=== PATIENT | male | born 1975 | race American Indian/Alaskan Native ===

== ENCOUNTER 2017-07-04 05:25 | Emergency (ER) | payer SELFPAY ==
[2017-07-04 05:26] VITALS: BMI 24.4
[2017-07-04 05:51] VITALS: RESP 18; TEMP 97.3
--- NOTE | 2017-07-04 05:58 | ED PDOC ---
Arrival/HPI - General Chief Complaint: Medical Clearance Time Seen by Provider: 07/04/17 05:47 Historian: Patient - History of Present Illness Narrative History of Present Illness (Text): 07/04/17 05:54 41 year old male, with no significant past medical history, presents to the Emergency department for a place to stay for tonight. Patient states he is homeless and was walking around with no place to stay and requesting to rest for a while. Upon questioning about medical complaints, patient states "I guess I have to go back to the jail". Patient denies any fever, chills, nausea, vomiting, diarrhea, chest pain, shortness of breath or any other somatic complaints. Patient admits to smoking everyday. Time/Duration: Prior to Arrival Activities at Onset: Light Context: Street Past Medical History - Provider Review Nursing Documentation Reviewed: Yes - Cardiac Hx Cardiac Disorders: Yes Hx Hypertension: Yes - Pulmonary Hx Respiratory Disorders: No - Neurological Hx Neurological Disorder: No - HEENT Hx HEENT Disorder: No - Renal Hx Renal Disorder: No - Endocrine/Metabolic Hx Endocrine Disorders: No - Hematological/Oncological Hx Blood Disorders: No - Integumentary Hx Dermatological Disorder: No - Musculoskeletal/Rheumatological Hx Musculoskeletal Disorders: No - Gastrointestinal Hx Gastrointestinal Disorders: No - Genitourinary/Gynecological Hx Genitourinary Disorders: No - Psychiatric Hx Psychophysiologic Disorder: No Hx Substance Use: No - Surgical History Hx Appendectomy: Yes - Anesthesia Hx Anesthesia: No Family/Social History - Physician Review Nursing Documentation Reviewed: Yes Family/Social History: No Known Family HX Smoking Status: Current Some Days Smoker Hx Alcohol Use: Yes Frequency of alcohol use: Daily Hx Substance Use: No Allergies/Home Meds Allergies/Adverse Reactions: Allergies No Known Allergies Allergy (Verified 03/04/16 03:15) Home Medications: Home Meds Medication Instructions Recorded Confirmed No Known Home Med 03/04/16 07/04/17 Review of Systems - Physician Review All systems were reviewed & negative as marked: Yes - Review of Systems Constitutional: Normal. absent: Fevers Respiratory: Normal. absent: SOB Cardiovascular: Normal. absent: Chest Pain Gastrointestinal: Normal. absent: Abdominal Pain, Diarrhea, Nausea, Vomiting Physical Exam Vital Signs Reviewed: Yes Vital Signs Temp Pulse Resp BP Pulse Ox 07/04/17 05:49 97.3 F L 68 18 146/92 H 100 Temperature: Afebrile Blood Pressure: Hypertensive Pulse: Regular Respiratory Rate: Normal Appearance: Positive for: Well-Appearing, Non-Toxic, Comfortable Pain Distress: None Mental Status: Positive for: Alert and Oriented X 3 - Systems Exam Head: Present: Atraumatic, Normocephalic Pupils: Present: PERRL Extroacular Muscles: Present: EOMI Conjunctiva: Present: Normal Ears: Present: NORMAL TM Neck: Present: Normal Range of Motion Respiratory/Chest: Present: Clear to Auscultation, Good Air Exchange. No: Respiratory Distress, Accessory Muscle Use Cardiovascular: Present: Regular Rate and Rhythm, Normal S1, S2. No: Murmurs Abdomen: No: Tenderness, Distention, Peritoneal Signs Upper Extremity: Present: Normal Inspection. No: Cyanosis, Edema Lower Extremity: Present: Normal Inspection. No: Edema Neurological: Present: GCS=15, CN II-XII Intact, Speech Normal, Motor Func Grossly Intact, Normal Sensory Function Skin: Present: Warm, Dry, Normal Color. No: Rashes Psychiatric: Present: Alert, Oriented x 3, Normal Insight, Normal Concentration Medical Decision Making ED Course and Treatment: 07/04/17 06:00 Impression: 41 year old male presents to the Emergency department for a place to stay without any medical complaints. Plan: -- Reassess and disposition Progress Notes: - Scribe Statement The provider has reviewed the documentation as recorded by the Scribe Alexus Renee. All medical record entries made by the Scribe were at my direction and personally dictated by me. I have reviewed the chart and agree that the record accurately reflects my personal performance of the history, physical exam, medical decision making, and the department course for this patient. I have also personally directed, reviewed, and agree with the discharge instructions and disposition. Disposition/Present on Arrival - Present on Arrival Any Indicators Present on Arrival: No History of DVT/PE: No History of Uncontrolled Diabetes: No Urinary Catheter: No History of Decub. Ulcer: No History Surgical Site Infection Following: None - Disposition Have Diagnosis and Disposition been Completed?: Yes Diagnosis: Malingering, Homelessness Disposition: HOME/ ROUTINE Disposition Time: 07:06 Patient Plan: Discharge Condition: STABLE Additional Instructions: Follow up housing jail as you had indicated/Refer to list given Referrals: PCP,NO [Primary Care Provider] - Follow up with primary Forms: [employer] (Ukrainian)
[2017-07-04 07:13] VITALS: BP 148/99; PULSE 83; O2SAT 98
== END 2017-07-04 07:12 | disposition home or self-care (01) ==
LOC: ED 05:25
DX: Z76.5 Malingerer [conscious simulation] (principal); Z59.0 Homelessness

== ENCOUNTER 2018-03-23 23:18 | Emergency (ER) | payer MEDICAID ==
[2018-03-23 23:37] VITALS: BMI 22.4
[2018-03-23 23:42] VITALS: TEMP 98.4; O2SAT 100
--- NOTE | 2018-03-24 01:29 | ED PDOC ---
Arrival/HPI - General Chief Complaint: Back Pain Time Seen by Provider: 03/24/18 00:06 Historian: Patient - History of Present Illness Narrative History of Present Illness (Text): 03/24/18 01:27 42 year old male, with no significant past medical history, presents to the emergency department with lower back and bilateral leg pain, since "when it got dark". Patient appears intoxicated and admits to using "dust". Patient denies any injury. Patient denies any saddle anesthesia, leg weakness, bowel or bladder symptoms, fever, headache, or any other complaints. Time/Duration: Prior to Arrival Symptom Onset: Gradual Symptom Course: Unchanged Quality: Aching Activities at Onset: Light Past Medical History - Provider Review Nursing Documentation Reviewed: Yes - Infectious Disease Hx of Infectious Diseases: None - Cardiac Hx Cardiac Disorders: Yes Hx Hypertension: Yes - Pulmonary Hx Respiratory Disorders: No - Neurological Hx Neurological Disorder: No - HEENT Hx HEENT Disorder: No - Renal Hx Renal Disorder: No - Endocrine/Metabolic Hx Endocrine Disorders: No - Hematological/Oncological Hx Blood Disorders: No - Integumentary Hx Dermatological Disorder: No - Musculoskeletal/Rheumatological Hx Musculoskeletal Disorders: No - Gastrointestinal Hx Gastrointestinal Disorders: No - Genitourinary/Gynecological Hx Genitourinary Disorders: No - Psychiatric Hx Psychophysiologic Disorder: No Hx Substance Use: No - Surgical History Hx Appendectomy: Yes - Anesthesia Hx Anesthesia: No Family/Social History - Physician Review Nursing Documentation Reviewed: Yes Family/Social History: No Known Family HX Smoking Status: Never Smoked Hx Alcohol Use: No Hx Substance Use: No Allergies/Home Meds Allergies/Adverse Reactions: Allergies No Known Allergies Allergy (Verified 03/23/18 23:36) Home Medications: Home Meds Medication Instructions Recorded Confirmed RX: No Known Home Med 03/04/16 03/23/18 Review of Systems - Physician Review All systems were reviewed & negative as marked: Yes - Review of Systems Constitutional: absent: Fevers Gastrointestinal: Normal Genitourinary Male: Normal Musculoskeletal: Back Pain, Myalgias Neurological: absent: Headache, Focal Weakness (no leg weakness), Other (no saddle anesthesia) Physical Exam Vital Signs Reviewed: Yes Vital Signs Temp Pulse Resp BP Pulse Ox 03/23/18 23:40 98.4 F 76 20 151/101 H 100 Temperature: Afebrile Blood Pressure: Hypertensive Pulse: Regular Respiratory Rate: Normal Appearance: Positive for: Well-Appearing, Comfortable Pain Distress: None Mental Status: Positive for: Alert and Oriented X 3 - Systems Exam Head: Present: Atraumatic, Normocephalic Pupils: Present: PERRL Extroacular Muscles: Present: EOMI Conjunctiva: Present: Normal Mouth: Present: Moist Mucous Membranes Neck: Present: Normal Range of Motion Respiratory/Chest: Present: Clear to Auscultation, Good Air Exchange. No: Respiratory Distress, Accessory Muscle Use Cardiovascular: Present: Regular Rate and Rhythm, Normal S1, S2. No: Murmurs Abdomen: No: Tenderness, Distention, Peritoneal Signs Back: Present: Normal Inspection, Paraspinal Tenderness (Mild tenderness in lumbar parivertebral spine), Other (Able to ambulate without difficulty; no ecchymosis). No: Midline Tenderness Upper Extremity: Present: Normal Inspection. No: Cyanosis, Edema Lower Extremity: Present: Normal Inspection. No: Edema, Other (No saddle anesthesia) Neurological: Present: GCS=15, CN II-XII Intact, Speech Normal, Motor Func Grossly Intact, Normal Sensory Function Skin: Present: Warm, Dry, Normal Color. No: Rashes, Laceration Psychiatric: Present: Alert, Oriented x 3, Normal Insight, Normal Concentration Medical Decision Making ED Course and Treatment: 03/24/18 01:34 Impression: 42 year old male presents with back and bilateral leg pain Plan: -- Ibuprofen -- Reassess and disposition Prior Visits: Notes and results from previous visits were reviewed. Progress Notes: Patient able to ambulate. No weakness or numbness to legs. No injury. Imaging not clinically indicated at this time. Advised outpatient followup as needed. Ibuprofen PO given. - Medication Orders Current Medication Orders: Discontinued Medications Ibuprofen (Motrin Tab) 600 mg PO STAT STA Stop: 03/24/18 00:16 Last Admin: 03/24/18 00:21 Dose: 600 mg MAR Pain/Vitals Document 03/24/18 00:21 AD (Rec: 03/24/18 00:23 AD [facility] [id number]) Pain Reassessment Is This A Pain ReAssessment? No Presence of Pain Presence of Pain Yes Pain Scale Used Protocol: PSCALES Pain Scale Used Numeric Location Intensity 5 Scale Used Numeric - Scribe Statement The provider has reviewed the documentation as recorded by the Jose Escobedo Provider Scribe Attestation: All medical record entries made by the Jose were at my direction and personally dictated by me. I have reviewed the chart and agree that the record accurately reflects my personal performance of the history, physical exam, medical decision making, and the department course for this patient. I have also personally directed, reviewed, and agree with the discharge instructions and disposition. Disposition/Present on Arrival - Present on Arrival Any Indicators Present on Arrival: No History of DVT/PE: No History of Uncontrolled Diabetes: No Urinary Catheter: No History of Decub. Ulcer: No History Surgical Site Infection Following: None - Disposition Have Diagnosis and Disposition been Completed?: Yes Diagnosis: Back pain Disposition: HOME/ ROUTINE Disposition Time: 01:14 Condition: STABLE Discharge Instructions (ExitCare): Low Back Pain (DC) Additional Instructions: NYLA URIBE, thank you for letting us take care of you today. Your provider was Alivia Luong MD and you were treated for legs and back pain. The emergency medical care you received today was directed at your acute symptoms. If you were prescribed any medication, please fill it and take as directed. It may take several days for your symptoms to resolve. Return to the Emergency Department if your symptoms worsen, do not improve, or if you have any other problems. Please contact your doctor or call one of the physicians/clinics you have been referred to that are listed on the Patient Visit Information form that is included in your discharge packet. Bring any paperwork you were given at discharge with you along with any medications you are taking to your follow up visit. Our treatment cannot replace ongoing medical care by a primary care provider outside of the emergency department. Thank you for allowing the [facility] team to be part of your care today. If you had an X-Ray or CT scan: A Radiologist will review the ED reading if any change in treatment is needed we will contact you. If you had a blood, urine, or wound culture: It will take several days for the results, if any change in treatment is needed we will contact you. If you had an STI test: It will take 48 hours for the results. Please call after 1 week if you have not heard back. Referrals: Susan Carl DO [Primary Care Provider] - Follow up with primary Forms: [employer] (Ivorian)
[2018-03-24 01:35] VITALS: BP 135/84; PULSE 75; RESP 18
== END 2018-03-24 01:20 | disposition home or self-care (01) ==
LOC: ED 23:18
DX: M54.5 Low back pain (principal); I10 Essential (primary) hypertension